=== PATIENT | male | born 1985 | race Two or more races ===

== ENCOUNTER 2021-10-06 07:10 | Day surgery (SDC) | payer OTHER ==
[2021-10-06] MEDS ORDERED: NEURONTIN300 MG PO (11:08)
[2021-10-06] MEDS ORDERED: COLACE100 MG PO (11:08)
[2021-10-06] MEDS ORDERED: ULTRACET PO (11:08)
== END 2021-10-06 16:30 | disposition home or self-care (01) ==
LOC: CIR.AMB 07:10
PROVIDERS: ATTEND Surgery
DX: K60.1 Chronic anal fissure (principal); K62.4 Stenosis of anus and rectum; K62.89 Other specified diseases of anus and rectum; Z20.822 Contact with and (suspected) exposure to COVID-19